=== PATIENT | female | born 1970 | race Caucasian/White ===

== ENCOUNTER → 2020-06-09 | Outpatient (CLI) | payer OTHER ==
[2020-06-10 02:06] LABS: GLYCOHEMOGLOBIN (HGB A1C) 6.3 % (4.8-5.6)
== END ==
LOC: M.LAB 08:18
PROVIDERS: ATTEND Physician Assistant
DX: E11.9 Type 2 diabetes mellitus without complications (principal)

== ENCOUNTER 2020-10-13 18:42 | Emergency (ER) | payer OTHER ==
[~2020-10-13] VITALS: Ht 162.6 cm; Wt 99.8 kg
[2020-10-13] MEDS ORDERED: METFORMIN HCL500 M3 PO (18:52)
[2020-10-13 19:54] LABS: ABSOLUTE BASOPHILS 0.1 thou/uL (0.0-0.2); ABSOLUTE EOSINOPHILS 0.1 thou/uL (0.0-0.7); ABSOLUTE LYMPHOCYTES 3.6 thou/uL (0.8-5.3); ABSOLUTE MONOCYTES 0.4 thou/uL (0.0-1.2); ABSOLUTE NEUTROPHILS 4.1 thou/uL (1.6-8.1); BASOPHILS 0.9 %; EOSINOPHILS 1.5 %; HEMATOCRIT 37.1 % (37.0-47.0); LYMPHOCYTES 43.2 %; MCH 31.2 pg (26.0-34.0); MCHC 34.9 g/dL (28.0-37.0); MCV 89.3 fL (80.0-100.0); MONOCYTES 4.7 %; MPV 7.4 fl. (7.2-11.1); NUCLEATED RBCS 0 /100WBC; PLATELET COUNT* 230 thou/uL (150-400); POLYS 49.7 %; RBC 4.15 mil/uL (4.20-5.00); RDW-CV 14.3 % (10.5-14.5); WBC 8.3 thou/uL (4.0-11.0)
[2020-10-13 20:03] LABS: CALCIUM 8.9 mg/dL (8.5-10.1); CREATININE 0.9 mg/dL (0.6-1.3); POTASSIUM 4.5 mmol/L (3.5-5.1)
[2020-10-13 20:08] LABS: MAGNESIUM 1.9 mg/dL (1.8-2.4); TOTAL BILIRUBIN 0.2 mg/dL (<0.1-1.0); TOTAL PROTEIN 7.3 g/dL (6.4-8.2)
[2020-10-13 20:14] LABS: ALBUMIN 3.8 g/dL (3.4-5.0)
[2020-10-13 21:22] LABS: URINE BILIRUBIN NEGATIVE (Negative); URINE BLOOD TRACE (Negative); URINE CLARITY CLEAR; URINE COLOR YELLOW; URINE GLUCOSE-RANDOM NEGATIVE (Negative); URINE KETONES NEGATIVE (Negative); URINE LEUKOCYTES-REFLEX NEGATIVE (Negative); URINE NITRITE-REFLEX NEGATIVE (Negative); URINE PROTEIN NEGATIVE (Negative); URINE SPECIFIC GRAVITY 1.025 (1.005-1.030); URINE UROBILINOGEN 0.2 E.U./dl (0.2-1.0)
[2020-10-13] MEDS ORDERED: CARAFATE 1 GM TA1 GM PO (23:02)
[2020-10-13 23:14] VITALS: BP 124/72
--- NOTE | 2020-10-14 10:51 | EKG ---
[place] [address] ELECTROCARDIOGRAM REPORT Name: SILVERIO NORIEGA Room: [facility]#: [id number] Admission: 10/13/20 Attend Phys: Discharge: 10/13/20 Date of : 70 Date of Service: 10/13/201846 Report #: [id number] THIS REPORT FOR: //name// [facility] ED Test Date: 2020-10-13 Test Time: 18:47:42 Pat Name: SILVERIO NORIEGA Department: Room: Gender: F Student Services Coordinator: LOVE : 1970 Requested By: Shantanu Singh Order Number: [id number] MD: Jama Ureña Measurements Intervals [place] Rate: 80 P: 40 MN: 130 QRS: 50 QRSD: 91 T: 50 QT: 368 QTc: 425 Interpretive Statements Sinus rhythm No previous ECG available for comparison Electronically Signed On 10-14-2020 10:51:31 CDT by Jama Ureña [email or web address] <ELECTRONICALLY SIGNED> By: Jama Ureña MD, [facility] 10/14/20 1051 [id number] [id number] Jama Ureña MD, [facility] /EPI
== END 2020-10-13 23:14 | disposition home or self-care (01) ==
LOC: M.ERS 18:42
PROVIDERS: Emergency Medicine Emergency Medical Services; Personal Emergency Response Attendant
DX: K21.00 Gastro-esophageal reflux disease with esophagitis, without bleeding (principal); Z90.710 Acquired absence of both cervix and uterus

== ENCOUNTER → 2020-12-08 | Outpatient (CLI) | payer OTHER ==
[~2020-12-08] MED LIST: CARAFATE 1 GM TA1 GM PO; METFORMIN HCL500 M3 PO
== END ==
LOC: M.ULTRA 07:09
PROVIDERS: ATTEND Physician Assistant
DX: D73.4 Cyst of spleen (principal); K76.0 Fatty (change of) liver, not elsewhere classified; R16.0 Hepatomegaly, not elsewhere classified